=== PATIENT | male | born 1990 | race Caucasian/White ===

== ENCOUNTER 2021-08-25 19:10 | Emergency (ER) | payer BC ==
[~2021-08-25] VITALS: Ht 170.2 cm; Wt 97.5 kg
[2021-08-25 19:47] VITALS: BP 146/65
--- NOTE | 2021-08-25 19:50 | NUR ---
TO LOBBY A/W BED AMBULATORY
--- NOTE | 2021-08-25 22:09 | NUR ---
Patient being evaluated by physician at bedside.
[2021-08-25] MEDS ORDERED: IBUP-2213 PO (23:20)
[2021-08-25] MEDS ORDERED: COROTSOL LEFT EAR (23:20)
[2021-08-25] MEDS ORDERED: ACET-8386 PO (23:20)
[2021-08-25 23:27] VITALS: BP 146/65
--- NOTE | 2021-08-25 23:27 | NUR ---
SEEN AND DISCHARGED BY JEN FRANKEL. NO NURSING INTERVENTIONS NEEDED. Patient discharged with v/s stable. Written and verbal after care instructions given and explained. Patient alert, oriented and verbalized understanding of instructions. Ambulatory with steady gait. All questions addressed prior to discharge. ID band removed. Patient advised to follow up with PMD. Rx of CORTISPORIN OTIC SOLUTION, IBUPROFEN, AND HYDROCODONE/ACETAMINOPHEN given. Patient educated on indication of medication including possible reaction and side effects. Opportunity to ask questions provided and answered.
== END 2021-08-25 23:27 | disposition home or self-care (01) ==
LOC: MED 19:10
DX: T16.2XXA Foreign body in left ear, initial encounter (principal); H60.92 Unspecified otitis externa, left ear; X58.XXXA Exposure to other specified factors, initial encounter; Y93.89 Activity, other specified; Y92.89 Other specified places as the place of occurrence of the external cause; Y99.8 Other external cause status
CPT/HCPCS: 69200; 99283; 99284